=== PATIENT | female | born 1990 | race Caucasian/White ===

== ENCOUNTER 2017-08-19 11:21 | Emergency (ER) | payer MEDICAID ==
[~2017-08-19] VITALS: Ht 162.6 cm; Wt 77.1 kg
[~2017-08-19 11:21] MED LIST: BACTRIM DS 8001 TAB PO; KEFLEX 500MG.500 MG PO; LORTAB 500 MG-71 TAB PO; PRENATAL PLUS1 TA1 OR; TYLENOL 325MG325 MG OR
--- OUTSIDE RECORDS SUMMARY | 2017-08-19 11:28 | External Medical Summary Rpt | CCD ---
Author Author , MONTRELL Organization MONTRELL Address Unknown Phone [email or web address] Care Team Providers Care Home Service Advisor Name Role Phone MINNA BUITRAGO Unavailable Unavailable NAIDU ALL, NAIDU ALL Unavailable Unavailable CHIPPS PATRICIO & Unavailable Unavailable DUBILIER, CHIPPS PATRICIO & DUBILIER MONDRAGON KARENA, MONDRAGON Unavailable Unavailable KARENA MARY LIZZETTE, Unavailable Unavailable MARY LIZZETTE [place] Un[facility] DEPA RAY, DEPA RAY Unavailable Unavailable [facility] Unavailable Unavailable [place], [facility] [place] LOAN JEISON, Unavailable Unavailable LOAN JEISON CONRAD LA, CONRAD Unavailable Unavailable LA JAVIER LA, JAVIER Unavailable Unavailable [facility] Unavailable Unavailable [facility]ENTER, [facility] Unavailable Unavailable CENTER, [facility] Unavailable Unavailable INC, [facility] Unavailable Unavailable HOSPITAL P, [facility] PITER SANCHEZ Unavailable Unavailable ERNST GRAF BARRETT, GRAF BARRETT Unavailable Unavailable GRAF BARRETT, GRAF BARRETT Unavailable Unavailable [facility], Unavailable Unavailable [facility]available GROUP PS, [facility] Unavailable Unavailable INTERNAL MED, [facility] MARKO ANT, MARKO ANT Unavailable Unavailable DIANNE APOLINAR, DIANNE APOLINAR Unavailable Unavailable TESS GAR, Unavailable Unavailable TESS GAR O'SHELDONBRYAN ACEVEDO O'SHELDON Unavailable Unavailable [facility], Unavailable Unavailable [facility], ASAC ANA LEE LEEANN, Unavailable Unavailable ANA BRADSHAW [facility], Unavailable Unavailable [facility], Unavailable Unavailable [facility] Unavailable Unavailable [facility], [facility] Unavailable Unavailable LLC, [facility] Unavailable Unavailable [id number] [address] [id number], [facility] [id number] [address] [id number] MANNY TUBE MAKER, Unavailable Unavailable MANNYYUMIKO STUART, Unavailable Unavailable MANNY TUBE MAKER [facility] Unavailable Unavailable [facility], [facility] Purpose Continuity of Care Document - 12-17-2010 through 2016 Problems Code Diagnosis DOS Provider Status J069 ACUTE UPPER 02-20-2017 [facility] INTERNAL INFECTION MED UNSPECIFIED J3089 OTHER 02-20-2017 [facility] RHINITIS INTERNAL MED H5213 MYOPIA 08-15-2016 GRAF BARRETT BILATERAL [id number] MIGRAINE 05-27-2016 [facility] W/O [facility] INTRACT INTERNAL W/STAT MED MIGRAINOSUS B349 VIRAL 05-25-2016 [facility], UNSPECIFIED PLL R51 HEADACHE 05-25-2016 [facility], [facility] Z720 TOBACCO USE 05-25-2016 [facility] K580 IRRITABLE 10-16-2015 [facility] SYNDROME INTERNAL WITH MED DIARRHEA M545 LOW BACK 10-16-2015 [facility] PAIN [facility] INTERNAL MED Z0000 ENCOUNTER 10-16-2015 [facility] GEN ADULT [facility] MED EXAM INTERNAL W/O MED ABNORMAL FIND Z23 ENCOUNTER 10-16-2015 [facility] FOR [facility] IMMUNIZATIO INTERNAL N MED 56880 DIARRHEA 07-11-2015 [facility] 75480 ABDOMINAL 07-11-2015 [facility] UNSPECIFIED INC SITE 7245 UNSPECIFIED 06-20-2015 [facility] BACKACHE [facility] INTERNAL MED 61537 OTHER 06-12-2015 [place] [facility] 7379 UNSPECIFIED 06-12-2015 [place] CURVATURE [facility] SPINE [facility] 7391 NONALLOPATH 06-12-2015 [place] IC LESION [facility] CERVICAL [facility]ENT[facility] REGION NEC 7392 NONALLOPATH 06-12-2015 [place] IC LESION [facility] THORACIC [facility]ENT[facility] REGION NEC V252 STERILIZATI 01-10-2015 [place] [place] [facility] V7269 OTHER 01-10-2015 [facility] PATRICIO & EXAMINATION DUBILIER 650 NORMAL 01-08-2015 [place] [facility] V221 SUPERVISION 01-08-2015 [facility] V270 OUTCOME OF 01-08-2015 [facility] LIVEBORN 3550 LESION OF 12-13-2014 [facility] SCIATIC [facility] NERVE INTERNAL MED 3559 MONONEURITI 12-13-2014 [facility] S OF VALLEY UNSPECIFIED INTERNAL SITE MED V222 12-10-2014 [facility] P V239 UNSPECIFIED 11-27-2014 [facility] V2881 ENCOUNTER 08-23-2014 [facility] SURVEY 6875 CELLULITIS& 05-26-2014 [facility] ABSCESS OF PHYSICIANS HAND EXCEPT GROUP FINGERS&RIGO MB 7243 SCIATICA 05-22-2014 [facility] V571 OTHER 05-22-2014 [facility] THERAP[facility] V2511 ENC FOR 10-30-2011 [facility] INSERTION TUBE MAKER INTRAUTERIN E CONTRACEPT DEVICE V7241 10-30-2011 [facility] EXAMINATION TUBE MAKER OR TEST NEGATIVE RESULT 6258 OTH SPEC 09-24-2011 [facility] SYMPTOM TUBE MAKER ASSOC W/FEMALE GENITAL ORGANS V2509 OT GENERAL 09-24-2011 OLMST[facility] TUBE MAKER CNSL&ADVICE CONTRACEPT MANAGEMENT 57769 THREATENED 05-23-2011 [facility] ANTEPARTUM [facility] V7242 12-17-2010 [facility] POSITIVE RESULT Medications Na ND Rx Da Fi Fi Am Da Di Ph RX Ph St me C No te ll ll ou ys ag ar # ys at rm s nt no ma ic us Or Da si cy ia de te s n re d DU 51 09 10 30 30 00 EA Ac LO 99 -1 -[address] ti XE 10 8- 3- 00 SI ve TI 74 20 20 50 DE NE 71 17 17 20 0 39 PH HC AR L MA DR OM 30 OF CY MG NT HI CA AN P A IN C ME 61 09 10 30 30 00 EA Ac LO 44 -1 -[address] ti XI 20 8- 3- 00 SI ve CA 12 20 20 50 DE M 60 17 17 20 7. 1 40 PH 5 AR MG MA CY TA BL OF ET CY NT HI AN A IN C DU 51 08 09 30 30 00 EA Ac LO 99 -1 -[address] ti XE 10 4- 8- 00 00 SI ve TI 74 20 20 49 DE NE 71 17 17 25 0 32 PH HC AR L MA CY 30 OF CY MG NT HI CA AN P A IN C ME 61 08 09 30 30 00 EA Ac LO 44 -1 -[address] ti XI 20 4- 8- 00 00 SI ve CA 12 20 20 49 DE M 60 17 17 25 7. 1 33 PH 5 AR MG MA CY TA BL OF ET CY NT HI AN A IN C MA 51 06 07 59 1 00 EA Ac LA 67 -2 -[address] ti TH 25 6- 1- 00 00 SI ve IO 29 20 20 49 DE N 40 17 17 25 0. 4 34 PH 5% AR MA LO CY TI ON OF CY NT HI AN A IN C ME 61 06 07 30 30 00 EA Ac LO 44 -2 -[address] ti XI 20 6- 1- 00 00 SI ve CA 12 20 20 49 DE M 60 17 17 25 7. 1 33 PH 5 AR MG MA CY TA BL OF ET CY NT HI AN A IN C DU 51 06 07 30 30 00 EA Ac LO 99 -2 -[address] ti XE 10 6- 1- 00 00 SI ve TI 74 20 20 49 DE NE 71 17 17 25 0 32 PH HC AR L PIERCE MO 30 OF CY MG NT HI CA AN P A IN C CY 00 02 03 30 30 00 EA Ac CL 60 -1 -[address] ti OB 33 7- 7- 00 00 SI ve EN 07 20 20 47 DE ZA 82 17 17 59 IA 8 83 PH IN AR E MA 5 CY MG OF TA CY BL NT ET HI AN A IN C ME 61 02 03 30 30 00 EA Ac LO 44 -1 -[address] ti XI 20 7- 7- 00 00 SI ve CA 12 20 20 47 DE M 60 17 17 59 7. 1 81 PH 5 AR MG MA CY TA BL OF ET CY NT HI AN A IN C DU 13 02 03 30 30 00 EA Ac LO 66 -2 -[address] ti XE 80 0- 7- 00 00 SI ve TI 11 20 20 47 DE NE 03 17 17 59 0 82 PH HC AR L MA DR MO 30 OF CY MG NT HI CA AN P A IN C RA 53 08 09 5 60 30 EA 23 MARTINEZ Ac NI 74 -0 -[address] 59 YN ti TI 60 9- 9- 00 SI 08 ES ve DI 25 20 20 DE NE 31 11 11 NATTY 0 PH SE 15 AR PH 0 MA R MG CY TA OF BL ET CY NT HI AN A 59 08 08 0 14 7 EA 23 BE Ac 76 -3 -[address] 88 SS ti 21 0- 0- 00 SI 29 ON ve 05 20 20 DE [address] 5 PH EP AR HE MA N CY A OF CY NT HI AN A RA 53 08 08 5 60 30 EA 23 MARTINEZ Ac NI 74 -0 -[address] 59 YN ti TI 60 9- 9- 00 SI 08 ES ve DI 25 20 20 DE NE 31 11 11 NATTY 0 PH SE 15 AR PH 0 MA R MG CY TA OF BL ET CY NT HI AN A TO 24 06 06 2 5. 5 EA 23 MA Ac BR 20 -2 -[address] 08 TT ti AM 80 5- 5- 0 SI 04 HE ve YC 29 20 20 DE WS IN 00 11 11 5 PH JA 0. AR ME 3% MA S CY EY E OF DR OP CY S NT HI AN A AM 00 06 06 1 30 10 EA 22 MC Ac OX 78 -0 -[address] 86 KE ti IC 12 8- 8- 00 SI 62 OH ve IL 61 20 20 DE E LI 30 11 11 JR N 5 PH 50 AR WI 0 MA LL MG CY IA M CA OF F PS UL CY E NT HI AN A 00 06 06 0 20 7 EA 22 MARTINEZ Ac 59 -0 -[address] 77 YN ti 10 1- 1- 00 SI 46 ES ve 34 20 20 DE 90 11 11 NATTY 1 PH SE AR PH MA R CY OF CY NT HI AN A HY 16 05 05 0 90 30 EA [address] 71 -1 -[address] 56 YN ti OX 40 7- 7- 00 SI 01 ES ve YZ 08 20 20 DE IN 30 11 11 NATTY E 4 PH SE HC AR PH L MA R 50 CY MG OF TA CY BL NT ET HI AN A 00 05 05 0 30 10 EA 22 MARTINEZ Ac 59 -1 -[address] 56 YN ti 10 7- 7- 00 SI 22 ES ve 34 20 20 DE 90 11 11 NATTY 1 PH SE AR PH MA R CY OF CY NT HI AN A ME 00 05 05 0 70 5 EA 22 HU Ac TR 78 -0 -[address] 43 NT ti ON 17 6- 6- 00 SI 08 ER ve ID 07 20 20 DE AZ 78 11 11 NA OL 7 PH NC E AR Y VA MA C GI CY NA L OF 0. 75 CY % NT GL HI AN A TR 45 05 05 0 30 5 EA 22 HU Ac IA 80 -0 -[address] 37 NT ti MC 20 3- 3- 00 SI 00 ER ve IN 06 20 20 DE OL 43 11 11 NA ON 5 PH NC E AR Y 0. MA C 1% CY CR OF EA M CY NT HI AN A SM 49 05 05 0 47 7 EA 22 HU Ac 34 -0 -[address] 37 NT ti OH 80 3- 3- 00 SI 01 ER ve CO 53 20 20 DE NA 07 11 11 NA ZO 7 PH NC LE AR Y 7 MA C CY CR EA OF M CY NT HI AN A AZ 00 04 04 2. 1 RI 87 MARTINEZ Ac IT 78 -1 -1 00 TE 99 YN ti HR 11 9- 9- 0 17 ES ve OM 94 20 20 AI YC 13 11 11 D NATTY IN 1 PH SE AR PH 50 MA R 0 CY MG 03 TA 93 BL 8 ET # 03 [id number] Results Labs Lab Lab Date Result Refere Interp Status Commen Order Detail nces retati t Range on CHLAMYDIA AND GONORRHEA TESTING (12-21-2012 13:30) Chlamyd NEGATIV complet ia 013 E ed trachom 13:30 atis rRNA [Presen ce] in Unspeci fied specime n by Probe & target amplifi cation method Neisser NEGATIV complet ia 013 E ed gonorrh 13:30 oeae rRNA [Presen ce] in Unspeci fied specime n by Probe & target amplifi cation method CHLAMYDIA AND GONORRHEA TESTING (12-21-2012 13:30) COLLECT NA complet OR 013 ed 13:30 ETHNICI WHITE, complet TY 013 NON-HIS ed 13:30 PANIC KIT 731-13 complet EXPIRAT 013 ed ION 13:30 DATE SYMPTOM NO complet S 013 ed 13:30 REASON REVISIT complet FOR 013 /ANNUAL ed REQUEST 13:30 FAMILY PLANNIN G VISIT SPECIME FEMALE complet N 013 ENDOCER ed SOURCE 13:30 VICAL PREGNAN NO complet T 013 ed 13:30 CHART NA complet NUMBER 013 ed 13:30 Chlamyd Pending complet ia 013 ed trachom 13:30 atis rRNA [Presen ce] in Unspeci fied specime n by Probe & target amplifi cation method Neisser Pending complet ia 013 ed gonorrh 13:30 oeae rRNA [Presen ce] in Unspeci fied specime n by Probe & target amplifi cation method Procedures Procedure DOS Code Location Performer Comment OPHTH 14494 [facility]RAF [facility] XM&EVAL COMPRE NEW PT 1/> [place] [address] [facility] INFUSION 6 [facility] THERAPY/P INC INC ROPHYLAXI S /DX 1ST TO 1 HR THERAPEUT 28747 [facility] IC 6 [facility] INJECTION INC INC IV PUSH EACH NEW DRUG URNLS DIP 03139 [facility] 6 [facility] STICK/TAB INC INC LET REAGENT AUTO MICROSCOP Y BLOOD 60160 [facility] COUNT 6 [facility] COMPLETE INC INC AUTO&[place] [address] [place] MARY MAXILLOFA 6 MEDICAL LIZZETTE CIAL W/O IMAGING CONTRAST ASS MATERIAL COMPREHEN 49143 [facility] SIVE 6 [facility] [place] [address] [place] MARY HEAD/BRAI 6 MEDICAL LIZZETTE N W/O IMAGING CONTRAST ASS MATERIAL URINE 85690 [facility]LL 6 [facility] TEST INC INC VISUAL COLOR CMPRSN METHS SKIN TEST 55831 [facility] LOAN 5 [place] JEISON TUBERCULO INTERNAL SIS MED INTRADERM AL IMMUNOASS 56024 [facility] AY 5 [facility] ANALYTE INC INC QUAL/SEMI QUAL MULTIPLE STEP FLUORESCE 61585 [facility] NT 5 [facility] NONNFCT INC INC AGT ANTB SCREEN EA ANTIBODY COMPREHEN 94420 [facility] SIVE 5 [facility] METABOLIC INC INC PANEL COLLECTIO 25476 [facility] N VENOUS 5 [facility] BLOOD INC INC VENIPUNCT URE BLOOD 59104 MANN MANN COUNT 5 [facility] COMPLETE INC INC AUTO&AUTO DIFRNTL WBC ALLERGEN 78274 MANNISABEL DARNELL SPECIFIC 5 [facility] IGE INC INC SHORTY/SEMI SHORTY EA ALLERGEN RADEX 77001 [place] NAIDU ALL SPINE 5 MEDICAL THORACOLM IMAGING BR ASS STANDING SCOLIOSIS RADEX 25774 [facility]LL SPINE 5 [facility] SCOLIOS INC INC STUDY W/SUPINE & ERECT STUDY SELF-CARE 77961 CANDE CASTELLON /HOME 5 MGMT CHIROP[facility]AC CHIROPRAC TRAINING TIC CENTE TIC CENTE EACH 15 MINUTES CHIROPRAC 75596 CANDE PULIDO TIC 5 GAR MANIPULAT CHIROPRAC [place] TIC CENTE SPINAL 3-4 REGIONS CHIROPRAC 61256 CANDE PULIDO TIC 5 GAR MANIPULAT CHIROPRAC [place] TX TIC CENTE SPINAL 3-4 REGIONS RADEX 35133 [facility] SPINE 5 GAR CERVICAL CHIROPRAC 2 OR 3 TIC CENTE VIEWS RADEX 07307 [facility] SPINE 5 GAR LUMBOSACR CHIROPRAC AL 2/3 [place] L[place] [address] [facility] PICKLESIM SURG 5 PATRICIO & ER [facility] PATHOLOGY DUBILIER GROSS&LA ROSCOPIC EXAM ANES IPER 25747 [place] DEPA RAY LWR ABD 5 ANESTHESI W/LAPS A GROUP TUBAL PS LIGATION/ TRANSECT LIG/TRNSX 32749 [facility] Gagnon FLP 5 MEDICAL ERNST TUBE SERV ABDL/VAG FOUNDATIO POSTPARTU N M SPX NEURAXIAL 23846 [place] JAVIER LABOR 5 ANESTHESI LA ANALG/ANE A GROUP S PLND PS VAGINAL DELIVERY VAGINAL 22209 [facility] DELIVERY 5 MEDICAL ERNST ONLY SERV W/POSTPAR FOUNDATIO GUZMAN CARE N BLOOD 94440 [facility] COUNT 5 DIAGNOSTI DIAGNOSTI COMPLETE CS CS AUTOMATED COLLECTIO 37470 [facility] N VENOUS 5 DIAGNOSTI DIAGNOSTI BLOOD CS CS VENIPUNCT URE SYPHILIS 05907 [facility] TEST 5 DIAGNOSTI DIAGNOSTI NON-TREPO CS CS NEMAL ANTIBODY QUAL ANTIBODY 42725 [facility] SCREEN 5 DIAGNOSTI DIAGNOSTI RBC EACH CS CS SERUM TECHNIQUE CUL 51749 [facility] PRSMPTV 5 DIAGNOSTI DIAGNOSTI PTHGNC CS CS ORGANISM SCRN W/COLONY ESTIMJ GLUCOSE 05034 [facility] POST 4 DIAGNOSTI DIAGNOSTI GLUCOSE CS CS DOSE INCORPORA T US PREG 10540 JOY O'SHELDON UTERUS 4 MEDICAL KRISTINA AFTER SERV TRIMEST FOUNDATIO N GESTATION PHYSICAL 27712 MANN DAR[facility]LL THERAPY 4 [facility] EVALUATIO INC INC N IADNA 50266 [facility] CHLAMYDIA 4 DIAGNOSTI DIAGNOSTI CS CS LLC TRACHOMAT IS AMPLIFIED PROBE TQ IADNA 44603 [facility] NEISSERIA 4 DIAGNOSTI DIAGNOSTI CS CS LLC GONORRHOE AE AMPLIFIED PROBE TQ NEURAXIAL 27587 [place] MARK[facility] ANT LABOR 1 ANESTHESI ANALG/ANE A GROUP S PLND PSC VAGINAL DELIVERY 11793 [facility] NONSTRESS 1 [facility] 17098 MANN MANN [facility] CENTER VISUAL COLOR CMPRSN METHS Encounters Encounter Start End Date Code Location Performer Type Date OFFICE 57682 [facility] BESSON OUTPATIEN 7 7 [facility] T VISIT INTERNAL 25 MED MINUTES OFFICE 67049 [facility] OUTPATIEN 6 6 [facility] JEISON T VISIT INTERNAL 15 MED MINUTES HOSPITAL MANN - 6 6 [facility] OUTPATIEN INC T EMERGENCY 63820 GONZALO MARTINES 6 6 PHYSICIAN LA DEPARTMEN S, PLLC T VISIT HIGH/URGE NT SEVERITY OFFICE 19557 [facility] OUTPATIEN 5 5 [facility] T VISIT INTERNAL 25 MED MINUTES HOSPITAL MANN - 5 5 [facility] OUTPATI[facility] INC T OFFICE 17900 [facility] OUTPATIEN 5 5 [facility] JE[facility] T VISIT INTERNAL 15 MED MINUTES HOSPITAL MANN - 5 5 [facility] OUTPATI[facility] INC T OFFICE 25862 [facility] PULIDO OUTPATIEN 5 5 GAR T NEW 20 CHIROPRAC MINUTES TIC CENTE OFFICE 25262 [facility] OUTPATIEN 5 5 [facility] T VISIT INTERNAL 15 MED MINUTES HOSPITAL MANN - 5 5 [facility] OUTPATIEN INC T EMERGENCY 13077 MANN 5 5 [facility] T VISIT LOW/MODER SEVERITY EMERGENCY 19871 MANN JIANG 5 5 [facility] T VISIT P MODERATE SEVERITY OFFICE 50253 [facility] CONRAD RODGERS 4 4 [facility] T NEW [facility] S [facility] MANN - 4 4 [facility] OUTPATIEN INC T OFFICE 29270 [facility] BRYANT OUTPATIEN 1 1 [facility] T VISIT 15 MINUTES OFFICE 26546 [facility] DARNELL OUTALEXANDER 1 1 [facility] T VISIT CENTER CENTER 15 MINUTES
--- OUTSIDE RECORDS SUMMARY | 2017-08-19 11:28 | External Medical Summary Rpt | CCD ---
Author Author , MONTRELL Organization MONTRELL Address Unknown Phone [email or web address] Care Team Providers Care Take Out Waiter/Waitress Name Role Phone MINNA BUITRAGO Unavailable Unavailable NAIDU ALL, NAIDU ALL Unavailable Unavailable [facility]IPPS PATRICIO & Unavailable Unavailable DUBILIER, CHIPPS PATRICIO & DUBILIER MONDRAGON KARENA, MONDRAGON Unavailable Unavailable KARENA MARY LIZZETTE, Unavailable Unavailable MARY LIZZETTE [place] Unavailable [facility] [facility] DEPA RAY, DEPA RAY Unavailable Unavailable [facility] Unavailable [place]available [place], [facility] [place] LOAN JEISON, Unavailable Unavailable LOAN JEISON CONRAD LA, CONRAD Unavailable Unavailable LA JAVIER LA, JAVIER Unavailable Unavailable [facility] Unavailable Unavailable CENTER, [facility] Unavailable Unavailable CENTER, [facility] Unavailable Unavailable INC, [facility] Unavailable Unavailable [facility]OSPITAL P, [facility] PITER SANCHEZ Unavailable Unavailable ERNST GRAF BARRETT, GRAF BARRETT Unavailable Unavailable GRAF BARRETT, GRAF BARRETT Unavailable Unavailable [facility], Unavailable Unavailable [facility] [place] [facility] Un[facility] Unavailable [facility] PS, [place]available Unavailable INTERNAL MED, [facility] MARKO ANT, MARKO ANT Unavailable [...] [facility] Unavailable Unavailable [id number] [address] [id number], [facility] [id number] # [phone] MANNY CANTEEN ATTENDANT, Unavailable Unavailable MANNYYUMIKO STUART, Unavailable Unavailable MANNY CANTEEN ATTENDANT [facility] Unavailable Unavailable [facility] [place], [facility] Purpose Continuity of Care Document - 12-17-2010 through 2016 Problems Code Diagnosis DOS Provider Status J069 ACUTE UPPER 02-20-2017 [facility] INTERNAL INFECTION MED UNSPECIFIED [id number] OTHER 02-20-2017 [facility] ALLERGIC [facility] RHINITIS INTERNAL MED H5213 MYOPIA 08-15-2016 GRAF BARRETT BILATERAL [id number] MIGRAINE 05-27-2016 [facility] W/O [facility] INTRACT INTERNAL W/STAT MED MIGRAINOSUS B349 VIRAL 05-25-2016 [facility], UNSPECIFIED PLL R51 HEADACHE 05-25-2016 [facility], [facility] Z720 TOBACCO USE 05-25-2016 [facility] K580 IRRITABLE 10-16-2015 [facility] [place] [facility] SYNDROME INTERNAL WITH MED DIARRHEA M545 LOW BACK 10-16-2015 [facility] PAIN [facility] INTERNAL MED Z0000 ENCOUNTER 10-16-2015 [facility] GEN ADULT [facility] MED EXAM INTERNAL W/O MED ABNORMAL FIND Z23 ENCOUNTER 10-16-2015 [facility] FOR [facility] IMMUNIZATIO INTERNAL N MED 39607 DIARRHEA 07-11-2015 [facility] 24361 ABDOMINAL 07-11-2015 [facility] UNSPECIFIED INC SITE 7245 UNSPECIFIED 06-20-2015 [facility] BACKACHE [facility] INTERNAL MED 99019 OTHER 06-12-2015 [place] LORDOSIS [facility] 7379 UNSPECIFIED 06-12-2015 [place] CURVATURE [facility] SPINE C CENT[facility] 7391 NONALLOPATH 06-12-2015 [place] IC LESION [facility] CERVICAL C CENTE REGION NEC 7392 NONALLOPATH 06-12-2015 [place] IC LESION [facility] THORACIC C CENTE REGION NEC V252 STERILIZATI 01-10-2015 [place] [facility] V7269 OTHER 01-10-2015 [facility] PATRICIO & EXAMINATION DUBILIER 650 NORMAL 01-08-2015 [place] [facility] PS V221 SUPERVISION 01-08-2015 [facility] NORMAL [facility] V270 OUTCOME OF 01-08-2015 [facility] SINGLE [facility] LIVEBORN 3550 LESION OF 12-13-2014 [facility] SCIATIC [facility] NERVE INTERNAL MED 3559 MONONEURITI 12-13-2014 [facility] S OF VAL[facility] UNSPECIFIED INTERNAL SITE MED V222 12-10-2014 [facility] P V239 UNSPECIFIED 11-27-2014 [facility] V2881 ENCOUNTER 08-23-2014 [facility]AT[facility] SURVEY 6872 CELLULITIS& 05-26-2014 [facility] ABSCESS OF PHYSICIANS HAND EXCEPT GROUP FINGERS&RIGO MB 7243 SCIATICA 05-22-2014 [facility] V571 OTHER 05-22-2014 [facility] V2511 ENC FOR 10-30-2011 MAN[facility] INSERTION CANTEEN ATTENDANT INTRAUTERIN E CONTRACEPT DEVICE V7241 10-30-2011 [facility] EXAMINATION CANTEEN ATTENDANT OR TEST NEGATIVE RESULT 6258 OTH SPEC 09-24-2011 [place] SYMPTOM CANTEEN ATTENDANT ASSOC W/FEMALE GENITAL ORGANS V2509 OT GENERAL 09-24-2011 [place] CANTEEN ATTENDANT CNSL&ADVICE CONTRACEPT MANAGEMENT 61624 THREATENED 05-23-2011 [facility] CLINIC OF ANTEPARTUM [facility] V7242 12-17-2010 [facility] EXAMINATION HEALTH OR TEST CENTER POSITIVE RESULT [...] 39 PH HC AR L MA DR MO [...] 47 DE ZA 82 17 17 59 KS 8 83 PH IN AR E MA [...] IC 12 8- 8- 00 SI 62 NV ve IL 61 20 20 DE E [...] -0 -[address] 37 NT ti NV 80 3- 3- 00 SI 01 ER [...] Procedure DOS Code Location Performer Comment OPHTH 78924 [facility] 6 XM&EVAL COMPRE NEW PT 1/> [place] [address] MANN DARNELL INFUSION 6 [facility] THERAPY/P INC INC ROPHYLAXI S /DX 1ST TO 1 HR THERAPEUT 29488 [facility] DARNELL IC 6 [facility] INJECTION INC INC IV PUSH EACH NEW DRUG URNLS DIP 96642 [facility]LL 6 [facility] STICK/TAB INC INC LET REAGENT AUTO MICROSCOP Y BLOOD 49597 [facility] DARNELL COUNT 6 [facility] COMPLETE INC INC AUTO&[place] [address] [place] M[facility] MAXILLOFA 6 MEDICAL LIZZETTE CIAL W/O IMAGING CONTRAST ASS MATERIAL COMPREHEN 67129 [facility]ARNELL SIVE 6 [facility] [place] [address] [place] MARY HEAD/BRAI 6 MEDICAL LIZZETTE N W/O IMAGING CONTRAST ASS MATERIAL URINE 29072 [facility] DARNELL 6 [facility] TEST INC INC VISUAL COLOR CMPRSN METHS SKIN TEST 05760 [facility] LOAN 5 [place] JEISON TUBERCULO INTERNAL SIS MED INTRADERM AL IMMUNOASS 02940 [facility]LL AY 5 [facility] ANALYTE INC INC QUAL/SEMI QUAL MULTIPLE STEP FLUORESCE 74598 M[facility] DARNELL NT 5 [facility] NONNFCT INC INC AGT ANTB SCREEN EA ANTIBODY COMPREHEN 12461 MANN DARNELL SIVE 5 [facility] METABOLIC INC INC PANEL COLLECTIO 71365 MANN DARNELL N VENOUS 5 [facility] BLOOD INC INC VENIPUNCT URE BLOOD 86128 MANN MANN COUNT 5 [facility] COMPLETE INC INC AUTO&AUTO DIFRNTL WBC ALLERGEN 61966 MANNISABEL DARNELL SPECIFIC 5 [facility] IGE INC INC SHORTY/SEMI SHORTY EA ALLERGEN RADEX 96268 [place] NAIDU ALL SPINE 5 MEDICAL THORACOLM IMAGING BR ASS STANDING SCOLIOSIS RADEX 09717 MANN DARNELL SPINE 5 [facility] SCOLIOS INC INC STUDY W/SUPINE & ERECT STUDY SELF-CARE 81691 CANDE CASTELLON /HOME 5 MGMT CHIROPRAC CHIROPRAC TRAINING TIC CENTE TIC CENTE EACH 15 MINUTES CHIROPRAC 93771 [facility] PULIDO TIC 5 GAR MANIPULAT CHIROPRAC PENNY TX TIC CENTE SPINAL 3-4 REGIONS CHIROPRAC 11901 CANDE PULIDO TIC 5 GAR MANIPULAT CHIROPRAC PENNY TX TIC CENTE SPINAL 3-4 REGIONS RADEX 14801 [facility] P[facility]O SPINE 5 GAR CERVICAL CHIROPRAC 2 OR 3 TIC CENTE VIEWS RADEX 59473 [facility] SPINE 5 GAR LUMBOSACR CHIROPRAC AL 2/3 [place] L[place] [address] [facility] PICKLESIM SURG 5 PATRICIO & ER [facility] PATHOLOGY DUBILIER GROSS&LA ROSCOPIC EXAM ANES IPER 45046 [place] DEPA RAY LWR ABD 5 ANESTHESI W/LAPS A GROUP TUBAL PS LIGATION/ TRANSECT LIG/TRNSX 19892 [place] P[facility] Gagnon FLP 5 MEDICAL ERNST TUBE SERV ABDL/VAG FOUNDATIO POSTPARTU N M SPX NEURAXIAL 68179 [place] JAVIER LABOR 5 ANESTHESI LA ANALG/ANE A GROUP S PLND PS VAGINAL DELIVERY VAGINAL 07896 [facility] DELIVERY 5 MEDICAL ERNST ONLY SERV W/POSTPAR FOUNDATIO GUZMAN CARE N BLOOD 03696 [facility] COUNT 5 DIAGNOSTI DIAGNOSTI COMPLETE CS CS AUTOMATED COLLECTIO 90352 [facility] N VENOUS 5 DIAGNOSTI DIAGNOSTI BLOOD CS CS VENIPUNCT URE SYPHILIS 21061 [facility] TEST 5 DIAGNOSTI DIAGNOSTI NON-TREPO CS CS NEMAL ANTIBODY QUAL ANTIBODY 08060 [facility] SCREEN 5 DIAGNOSTI DIAGNOSTI RBC EACH CS CS SERUM TECHNIQUE CUL 80860 [facility] PRSMPTV 5 DIAGNOSTI DIAGNOSTI PTHGNC CS CS ORGANISM SCRN W/COLONY ESTIMJ GLUCOSE 79731 [facility] POST 4 DIAGNOSTI DIAGNOSTI GLUCOSE CS CS DOSE INCORPORA T US PREG 75189 JOY O'SHELDON UTERUS 4 MEDICAL KRISTINA AFTER SERV TRIMEST FOUNDATIO N GESTATION PHYSICAL 23029 MANN DARNELL THERAPY 4 [facility] EVALUATIO INC INC N IADNA 64663 [facility] CHLAMYDIA 4 DIAGNOSTI DIAGNOSTI CS CS LLC TRACHOMAT IS AMPLIFIED PROBE TQ IADNA 19352 [facility] NEISSERIA 4 DIAGNOSTI DIAGNOSTI CS CS LLC GONORRHOE AE AMPLIFIED PROBE TQ NEURAXIAL 44733 [place] MARKO ANT LABOR 1 ANESTHESI ANALG/ANE A GROUP S PLND PSC VAGINAL DELIVERY 33733 [facility] MONDRAG[facility] NONSTRESS 1 [facility] 17208 MANN MANN [facility] CENTER VISUAL COLOR CMPRSN METHS Encounters Encounter Start End Date Code Location Performer Type Date OFFICE 81143 [facility]PAT[facility] 7 7 [facility] T VISIT INTERNAL 25 MED MINUTES OFFICE 08721 [facility] OUTPATIEN 6 6 [facility] JEISON T VISIT INTERNAL 15 MED MINUTES HOSPITAL MANN - 6 6 [facility] OUTPATI[facility] INC T EMERGENCY 95516 [facility] MARTINES 6 6 PHYSICIAN LA DEPARTMEN S, PLLC T VISIT HIGH/URGE NT SEVERITY OFFICE 09901 [facility] LOAN OUTPATIEN 5 5 [facility] JEISON T VISIT INTERNAL 25 MED MINUTES HOSPITAL MANN - 5 5 [facility] OUTPATIEN INC T OFFICE 68809 [facility] OUTPATIEN 5 5 [facility] JEISON T VISIT INTERNAL 15 MED MINUTES HOSPITAL MANN - 5 5 [facility] OUTPATIEN INC T OFFICE 21545 [facility] P[facility]O OUTPATIEN 5 5 GAR T NEW 20 CHIROP[facility]AC MINUTES TIC CENTE OFFICE 70051 [facility] LO[facility] OUTPATIEN 5 5 [facility] JEISON T VISIT INTERNAL 15 MED MINUTES HOSPITAL MANN - 5 5 [facility] OUTPATIEN INC T EMERGENCY 98962 MANN 5 5 [facility] T VISIT LOW/MODER SEVERITY EMERGENCY 22878 MANN JIANG 5 5 [facility] T VISIT P MODERATE SEVERITY OFFICE 74596 [facility] CONRAD RODGERS 4 4 [facility] T NEW 20 S [facility] MANN - 4 4 [facility] OUTPATIEN INC T OFFICE 34966 MANNY BRYANT OUTPATIEN 1 1 [facility] T VISIT 15 MINUTES OFFICE 36888 MANN DARNELL OUTALEXANDER 1 1 [facility] T VISIT CENTER CENTER 15 MINUTES
--- OUTSIDE RECORDS SUMMARY | 2017-08-19 11:31 | External Medical Summary Rpt | CCD ---
Demographics Preferred Language Kazakh Marital Status Unknown [employer] Affiliation Unknown Race Unknown Ethnic Group Unknown Author Author , MONTRELL STOCK Address Unknown Phone Immunization Unable to retrieve immunization data due to connection failure with Immunization Registry. Please try again later.
--- OUTSIDE RECORDS SUMMARY | 2017-08-19 11:31 | External Medical Summary Rpt ---
Author Author MONTRELL Brown, MONTRELL [employer] Organization [employer] Address Unknown Phone Unavailable Results CHLAMYDIA AND GONORRHEA TESTING Observa Value Referen Units Interpr Notes Date tion ce etation Range COLLECT NA No No No No Dec 21 OR informa informa informa informa 2013 tion in tion in tion in tion in 1:30 PM source source source source data data data data ETHNICI WHITE, No No No No Dec 21 TY NON-HIS informa informa informa informa 2013 PANIC tion in tion in tion in tion in 1:30 PM source source source source data data data data KIT 7-31-13 No No No No Dec 21 EXPIRAT informa informa informa informa 2013 ION tion in tion in tion in tion in 1:30 PM DATE source source source source data data data data SYMPTOM NO No No No No Dec 21 S informa informa informa informa 2013 tion in tion in tion in tion in 1:30 PM source source source source data data data data REASON REVISIT No No No No Dec 21 FOR /ANNUAL informa informa informa informa 2013 REQUEST FAMILY tion in tion in tion in tion in 1:30 PM source source source source PLANNIN data data data data G VISIT SPECIME FEMALE No No No No Dec 21 N ENDOCER informa informa informa informa 2013 SOURCE VICAL tion in tion in tion in tion in 1:30 PM source source source source data data data data PREGNAN NO No No No No Dec 21 T informa informa informa informa 2013 tion in tion in tion in tion in 1:30 PM source source source source data data data data CHART NA No No No No Dec 21 NUMBER informa informa informa informa 2013 tion in tion in tion in tion in 1:30 PM source source source source data data data data Chlamyd NEGATIV No No No NEGATIV Dec 21 ia E informa informa informa E 2013 trachom tion in tion in tion in RESULT= 1:30 PM atis source source source WITHIN rRNA data data data NORMAL [Presen ce] in LIMITSP Unspeci OSITIVE fied specime RESULT= n by Probe & ABNORMA target LEQUIVO SOLE amplifi RESULT= cation method INDETER MINATEU NSATISF ACTORY RESULT= INVALID Neisser NEGATIV No No No NEGATIV Dec 21 ia E informa informa informa E 2013 gonorrh tion in tion in tion in RESULT= 1:30 PM oeae source source source WITHIN rRNA data data data NORMAL [Presen ce] in LIMITSP Unspeci OSITIVE fied specime RESULT= n by Probe & ABNORMA target LEQUIVO SOLE amplifi RESULT= cation method INDETER MINATEU NSATISF ACTORY RESULT= INVALID THE APTIMA COMBO 2 ASSAY IS NOT INTENDE D FOR THE EVALUAT ION OF SUSPECT EDSEXUA L ABUSE OR FOR OTHER MEDICO- LEGAL INDICAT IONS. FOR THOSE PATIENT S FORWHOM A FALSE POSITIV E RESULT MAY HAVE ADVERSE PSYCHO- SOCIAL IMPACT, [facility] RETEST[facility] NG.\.br \This report contain s patient informa tion that must be protect ed in accorda nce with the Health Insuran ce [place] lity and Account ability Act. CHLAMYDIA AND GONORRHEA TESTING Observa Value Referen Units Interpr Notes Date tion ce etation Range COLLECT NA No No No No Dec 21 OR informa informa informa informa 2013 tion in tion in tion in tion in 1:30 PM source source source source data data data data ETHNICI WHITE, No No No No Dec 21 TY NON-HIS informa informa informa informa 2013 PANIC tion in tion in tion in tion in 1:30 PM source source source source data data data data KIT 7-31-13 No No No No Dec 21 EXPIRAT informa informa informa informa 2013 ION tion in tion in tion in tion in 1:30 PM DATE source source source source data data data data SYMPTOM NO No No No No Dec 21 S informa informa informa informa 2013 tion in tion in tion in tion in 1:30 PM source source source source data data data data REASON REVISIT No No No No Dec 21 FOR /ANNUAL informa informa informa informa 2013 REQUEST FAMILY tion in tion in tion in tion in 1:30 PM source source source source PLANNIN data data data data G VISIT SPECIME FEMALE No No No No Dec 21 N ENDOCER informa informa informa informa 2013 SOURCE VICAL tion in tion in tion in tion in 1:30 PM source source source source data data data data PREGNAN NO No No No No Dec 21 T informa informa informa informa 2013 tion in tion in tion in tion in 1:30 PM source source source source data data data data CHART NA No No No No Dec 21 NUMBER informa informa informa informa 2013 tion in tion in tion in tion in 1:30 PM source source source source data data data data Chlamyd Pending No No No No Dec 21 ia informa informa informa informa 2013 trachom tion in tion in tion in tion in 1:30 PM atis source source source source rRNA data data data data [Presen ce] in Unspeci fied specime n by Probe & target amplifi cation method Neisser Pending No No No \.br\Dec 21 ia informa informa informa is 2013 gonorrh tion in tion in tion in report 1:30 PM oeae source source source contain rRNA data data data s [Presen patient ce] in Unspeci informa fied tion specime that n by must be Probe & target protect ed in amplifi accorda cation nce method with the Health Insuran ce [place] lity and Account ability Act.
--- OUTSIDE RECORDS SUMMARY | 2017-08-19 11:31 | External Medical Summary Rpt | CCD ---
Author Author , MONTRELL HOLMDOLORES Address Unknown Phone [email or web address] Care Team Providers Care Creative Director Name Role Phone MINNA BUITRAGO Unavailable Unavailable NAIDU ALL, NAIDU ALL Unavailable Unavailable [facility] PATRIC[facility] & Unavailable Unavailable DUBILIER, [facility] PATRICIO & DUBILIER MONDRAGON KARENA, MONDRAGON Unavailable Unavailable [facility] [place] Unavailable Unavailable [facility] DEPA RAY, DEPA RAY Unavailable Unavailable [facility] Unavailable Unavailable [place], [facility] [place] LOAN SAR, Unavailable Unavailable LOAN JEISON CONRAD LA, CONRAD Unavailable Unavailable LA JAVIER LA, JAVIER Unavailable Unavailable [facility] Unavailable Unavailable [place], [facility] Unavailable Unavailable CENTER, [facility] Unavailable Unavailable INC, [facility] Unavailable Unavailable HOSPITAL P, [facility] DUMAS ERNST, DUMAS Unavailable Unavailable ERNST GRAF BARRETT, GRAF BARRETT Unavailable Unavailable GRAF BARRETT, GRAF BARRETT Unavailable Unavailable [facility], Unavailable Unavailable [facility] Un[facility] Unavailable GROUP PS, [facility] Un[facility], [facility] Unavailable Unavailable INTERNAL MED, [facility] MARKO ANT, MARKO ANT Unavailable Unavailable DIANNE APOLINAR, DIANNE APOLINAR Unavailable Unavailable TESS GAR, Unavailable Unavailable TESS GAR Bob'SHELDONBob TEJEDA'SHELDON Unavailable Unavailable [facility], Unavailable Unavailable [facility] PICKGEORGE LEE LEEANN, Unavailable Unavailable ANA BRADSHAW [facility], Unavailable Unavailable [facility], Unavailable Unavailable [facility] Unavailable Unavailable [facility]AT, [facility] Unavailable Unavailable LLC, [facility] Unavailable Unavailable [id number] # [id number], [facility] [address] # [id number] MANNY STUART, Unavailable Unavailable MANNY STUART, Unavailable Unavailable MANNY STUART [facility] Unavailable Unavailable OF [place], [facility] Purpose Continuity of Care Document - 12-17-2010 through 2016 Problems Code Diagnosis DOS Provider Status J069 ACUTE UPPER 02-20-2017 [facility] INTERNAL INFECTION MED UNSPECIFIED J3089 OTHER 02-20-2017 [facility] ALLERGIC [facility] RHINITIS INTERNAL MED H5213 MYOPIA 08-15-2016 [place] HYDE BILATERAL [id number] MIGRAINE 05-27-2016 [facility] W/[facility] INTRACT INTERNAL W/STAT MED MIGRAINOSUS B349 VIRAL 05-25-2016 [facility]PEC[facility]C R51 HEADACHE 05-25-2016 [facility] Z720 TOBACCO USE 05-25-2016 [facility] K580 IRRITABLE 10-16-2015 [facility] BOWEL [place] SYNDROME INTERNAL WITH MED DIARRHEA M545 LOW BACK 10-16-2015 [facility] PAIN [facility] INTERNAL MED Z0000 ENCOUNTER 10-16-2015 [facility] GEN ADULT [place] MED EXAM INTERNAL W/O MED ABNORMAL FIND Z23 ENCOUNTER 10-16-2015 [facility] FOR [facility] IMMUNIZATIO INTERNAL N MED 10120 DIARRHEA 07-11-2015 [facility] 35222 ABDOMINAL 07-11-2015 [facility]IN[facility] UNSPECIFIED INC SITE 7245 UNSPECIFIED 06-20-2015 [facility] BACKACHE [place] INTERNAL MED 82415 OTHER 06-12-2015 [place] LORDOSIS [facility] 7379 UNSPECIFIED 06-12-2015 [place] CURVATURE [facility] SPINE C CENTE 7391 NONALLOPATH 06-12-2015 [place] IC LESION [facility]OPRA[facility]I OF CERVICAL C CENTE REGION NEC 7392 NONALLOPATH 06-12-2015 [place] IC LESION [facility]IROPRA[facility]I OF THORACIC C CENTE REGION NEC V252 STERILIZATI 01-10-2015 [place] [facility] PS V7269 OTHER 01-10-2015 [facility] PATRICIO & EXAMINATION DUBILIER 650 NORMAL 01-08-2015 [place] DELIVERY [facility]ESTH[facility]IA [facility] PS V221 SUPERVISION 01-08-2015 [place] [facility] OTHER SERV NORMAL [facility]OUNDATION V270 OUTCOME OF 01-08-2015 [place] [facility] LIVEBORN 3550 LESION OF 12-13-2014 [facility] SCIATIC [facility] NERVE INTERNAL MED 3559 MONONEURITI 12-13-2014 [facility] S OF VALLEY UNSPECIFIED INTERNAL SITE MED V222 12-10-2014 [facility] P V239 UNSPECIFIED 11-27-2014 [facility] V2881 ENCOUNTER 08-23-2014 [place] [facility]ATOMIC [facility] SURVEY 6847 CELLULITIS& 05-26-2014 [facility] OF PHYSICIANS HAND EXCEPT GROUP FINGERS&RIGO MB 7243 SCIATICA 05-22-2014 [facility] V571 OTHER 05-22-2014 [facility] INC V2511 ENC FOR 10-30-2011 [place] INSERTION ALLEY TENDER INTRAUTERIN E CONTRACEPT DEVICE V7241 10-30-2011 [place] EXAMINATION ALLEY TENDER OR TEST NEGATIVE RESULT 6258 OT SPEC 09-24-2011 [place] SYMPTOM ALLEY TENDER ASSOC W/FEMALE GENITAL ORGANS V2509 OT GENERAL 09-24-2011 [place] ALLEY TENDER CNSL&ADVICE CONTRACEPT MANAGEMENT 19499 THREATENED 05-23-2011 [facility] OF ANTEPARTUM [place] V7242 12-17-2010 [facility] EXAMINATION HEALTH OR TEST CENTER POSITIVE RESULT [...] ST ti XE 10 8- 3- 00 00 SI ve TI 74 20 20 50 DE NE 71 17 17 20 0 39 PH HC AR L PIER[place] MO 30 OF CY MG NT HI CA AN P A IN C ME 61 09 10 30 30 00 EA Ac LO 44 -1 -[address] ti XI 20 8- 3- 00 00 SI ve CA 12 20 [...] 47 DE ZA 82 17 17 59 MA 8 83 PH IN AR E MA [...] 82 PH HC AR L MA DR CY 30 OF CY MG NT HI [...] IC 12 8- 8- 00 SI 62 [place] ve IL 61 20 20 DE E [...] -0 -[address] 37 NT ti [place] 80 3- 3- 00 SI 01 ER [...] 93 BL 8 ET # 03 93 Procedures Procedure DOS Code Location Performer Comment [facility] [address] [facility] 6 XM&EVAL COMPRE NEW PT 1/> [place] [address] MANN DARNELL INFUSION 6 [facility] THERAPY/P INC INC ROPHYLAXI S /DX 1ST TO 1 HR THERAPEUT 38841 MANN D[facility]NELL IC 6 [facility] INJECTION INC INC IV PUSH EACH NEW DRUG URINE 61273 M[facility] D[facility]NELL 6 [facility] TEST INC INC VISUAL COLOR CMPRSN METHS COMPREHEN 50123 M[facility] D[facility]LL SIVE 6 [facility] [place] [address] MANN DARNELL HEAD/BRAI 6 [facility] N W/O INC INC CONTRAST MATERIAL URNLS DIP 22096 [facility] D[facility]LL 6 [facility] STICK/TAB INC INC LET REAGENT AUTO MICROSCOP Y BLOOD 62215 MANN D[facility]NELL COUNT 6 [facility] COMPLETE INC INC AUTO&[place] [address] MANN DARNELL MAXILLOFA 6 [facility] CIAL W/O INC INC CONTRAST MATERIAL SKIN TEST 00931 [facility] LOAN 5 VALLEY JEISON TUBERCULO INTERNAL SIS MED INTRADERM AL IMMUNOASS 28486 MANN D[facility]NELL AY 5 [facility] ANALYTE INC INC QUAL/SEMI QUAL MULTIPLE STEP COLLECTIO 80457 MANN DARNELL N VENOUS 5 [facility] BLOOD INC INC VENIPUNCT URE ALLERGEN 44000 MANN D[facility]LL SPECIFIC 5 [facility] IGE INC INC SHORTY/SEMI SHORTY EA ALLERGEN BLOOD 04161 [facility]LL COUNT 5 [facility] COMPLETE INC INC AUTO&AUTO DIFRNTL WBC COMPREHEN 86544 M[facility]LL SIVE 5 [facility] METABOLIC INC INC PANEL FLUORESCE 85177 MANN DARNELL NT 5 [facility] NONNFCT INC INC AGT ANTB SCREEN EA ANTIBODY RADEX 63393 [place] NAIDU ALL SPINE 5 MEDICAL THORACOLM IMAGING BR ASS STANDING SCOLIOSIS RADEX 10242 MANN DARNELL SPINE 5 [facility] SCOLIOS INC INC STUDY W/SUPINE & ERECT STUDY CHIROPRAC 82923 DAVIDLUISITO PULIDO TIC 5 GAR MANIPULAT CHIROPRAC [place] TIC CENTE SPINAL 3-4 REGIONS SELF-CARE 69444 DAVIDTHIKEV HERNANDEZTHIANA /HOME 5 MGMT CHIROPRAC CHIROPRAC TRAINING TIC CENTE TIC CENTE EACH 15 MINUTES RADEX 32158 [place] TESS SPINE 5 GAR LUMBOSACR CHIROPRAC AL 2/3 TIC CENTE VIEWS CHIROPRAC 91181 [place] PULIDO TIC 5 GAR MANIPULAT CHIROPRAC [place] TX TIC CENTE SPINAL 3-4 REGIONS RADEX 25704 [place] PULIDO SPINE 5 GAR CERVICAL CHIROPRAC 2 OR 3 [place] [address] [facility] PICKLESIM SURG 5 PATRICIO & ER [facility] PATHOLOGY DUBILIER GROSS&LA ROSCOPIC EXAM LIG/TRNSX 43066 [place] PITER J FLP 5 MEDICAL ERNST TUBE SERV ABDL/VAG FOUNDATIO POSTPARTU N M SPX ANES IPER 77607 [place] DEPA RAY LWR ABD 5 ANESTHESI W/LAPS A GROUP TUBAL PS LIGATION/ TRANSECT NEURAXIAL 45621 [place] JAVIER LABOR 5 ANESTHESI LA ANALG/ANE A GROUP S PLND PS VAGINAL DELIVERY VAGINAL 13241 JOY DUMAS DELIVERY 5 MEDICAL ERNST ONLY SERV W/POSTPAR FOUNDATIO GUZMAN CARE N BLOOD 11201 [facility] COUNT 5 DIAGNOSTI DIAGNOSTI COMPLETE CS CS AUTOMATED CUL 10294 [facility] PRSMPTV 5 DIAGNOSTI DIAGNOSTI PTHGNC CS CS ORGANISM SCRN W/COLONY ESTIMJ COLLECTIO 18142 [facility] N VENOUS 5 DIAGNOSTI DIAGNOSTI BLOOD CS CS VENIPUNCT URE SYPHILIS 10728 [facility] TEST 5 DIAGNOSTI DIAGNOSTI NON-TREPO CS CS NEMAL ANTIBODY QUAL ANTIBODY 13429 [facility] SCREEN 5 DIAGNOSTI DIAGNOSTI RBC EACH CS CS SERUM TECHNIQUE GLUCOSE 06739 [facility] POST 4 DIAGNOSTI DIAGNOSTI GLUCOSE CS CS DOSE INCORPORA T US PREG 40299 [place] O'SHELDON UTERUS 4 MEDICAL KRISTINA AFTER SERV TRIMEST FOUNDATIO N GESTATION PHYSICAL 95049 MANN DARNELL THERAPY 4 MEM HOSP [facility] HOSP EVALUATIO INC INC N IADNA 91522 [facility] NEISSERIA 4 DIAGNOSTI DIAGNOSTI CS CS LLC GONORRHOE AE AMPLIFIED PROBE TQ IADNA 68517 [facility] CHLAMYDIA 4 DIAGNOSTI DIAGNOSTI CS CS LLC TRACHOMAT IS AMPLIFIED PROBE TQ NEURAXIAL 43681 [place] MARKO ANT LABOR 1 ANESTHESI ANALG/ANE A GROUP S PLND PSC VAGINAL DELIVERY 34114 [facility] NONSTRESS 1 [facility]ALTH K[facility]NA TEST [facility] 48166 MANN DARNELL 1 [facility] CENTER VISUAL COLOR CMPRSN METHS Encounters Encounter Start End Date Code Location Performer Type Date OFFICE 44055 [facility] BESSON OUTPATIEN 7 7 VALLEY T VISIT INTERNAL 25 MED MINUTES OFFICE 87439 [facility] LOAN OUTPATIEN 6 6 [facility] T VISIT INTERNAL 15 MED MINUTES EMERGENCY 41664 [facility]ANN 6 6 [facility] H[facility]URGE NT [facility] MANN - 6 6 [facility] OUTPATIEN INC T OFFICE 28870 [facility] LOAN OUTPATIEN 5 5 [place] JEISON T VISIT INTERNAL 25 MED MINUTES HOSPITAL MANN - 5 5 [facility] OUTPATIEN INC T OFFICE 57489 [facility] LOAN OUTPATIEN 5 5 [facility] JEISON T VISIT INTERNAL 15 MED MINUTES HOSPITAL MANN - 5 5 [facility] OUTPATIEN INC T OFFICE 12808 [facility] PUL[facility]O OUTPATIEN 5 5 GAR T NEW CHIROPRAC MINUTES TIC CENTE OFFICE 15539 [facility] LOAN OUTPATIEN 5 5 VAL[facility] JEISON T VISIT INTERNAL 15 MED MINUTES EMERGENCY 56739 MANN JIANG 5 5 [facility] T VISIT P MODERATE SEVERITY HOSPITAL MANN - 5 5 [facility] OUTPATIEN INC T EMERGENCY 25208 MANN 5 5 [facility] INC T VISIT LOW/MODER SEVERITY OFFICE 06991 [facility] CONRAD OUTPATIEN 4 4 PHYSICIAN LA T NEW S GROUP MINUTES HOSPITAL MANN - 4 4 [facility] OUTPATIEN INC T OFFICE 46360 MANNY BRYANT OUTPATIEN 1 1 SADE ALLEY TENDER T VISIT 15 MINUTES OFFICE 62692 [facility]NELL OUTALEXANDER 1 1 [facility] CENTER 15 MINUTES
--- OUTSIDE RECORDS SUMMARY | 2017-08-19 11:31 | External Medical Summary Rpt ---
Author Author MONTRELL Brown, MONTRELL [employer] Organization [employer] Address Unknown Phone Unavailable [...] MAY HAVE ADVERSE PSYCHO- SOCIAL IMPACT, [facility] MMENDS RETESTI NG.\.br \This report contain s [...]
--- OUTSIDE RECORDS SUMMARY | 2017-08-19 11:31 | External Medical Summary Rpt | CCD ---
Demographics Preferred Language Ukrainian Marital Status Unknown Congregational Affiliation Unknown Race Unknown Ethnic Group Unknown Author Author , MONTRELL STOCK Address Unknown Phone Immunization Unable to retrieve immunization data due to connection failure with Immunization Registry. Please try again later.
--- OUTSIDE RECORDS SUMMARY | 2017-08-19 11:31 | External Medical Summary Rpt | CCD ---
Author Author , MONTRELL HOLMDOLORES Address Unknown Phone [email or web address] Care Team Providers Care Processing Rep Name Role Phone MINNA BUITRAGO Unavailable Unavailable NAIDU ALL, NAIUD ALL Unavailable Unavailable [facility] & Unavailable Unavailable DUBILIER, [facility] PATRICIO & DUBILIER MONDRAGON KARENA, MONDRAGON Unavailable Unavailable [facility] [place] Unavailable Unavailable [facility] DEPA RAY, DEPA RAY Unavailable Unavailable [facility] Unavailable Unavailable [place], [facility] [place] LOAN SAR, Unavailable Unavailable LOAN JEISON CONRAD LA, CONRAD Unavailable Unavailable LA JAVIER LA, JAVIER Unavailable Unavailable [facility] Unavailable Unavailable [place], [facility] Unavailable Unavailable CENTER, HOSP Unavailable Unavailable INC, [facility] Unavailable Unavailable HOSPITAL P, [facility] DUMAS ERNST, DUMAS Unavailable Unavailable ERNST GRAF BARRETT, GRAF BARRETT Unavailable Unavailable GRAF BARRETT, GRAF BARRETT Unavailable Unavailable [facility], Unavailable Unavailable [facility] Unavailable [facility]available GROUP PS, [facility] Un[facility], [facility] Unavailable Unavailable INTERNAL MED, [facility] INTERNAL MED MARKO ANT, MARKO ANT [...] [facility] Unavailable Unavailable [id number] # 0393, [facility] [address] # 0393 MANNY STUART, Unavailable Unavailable MANNY [...] MED H5213 MYOPIA 08-15-2016 [place] HYDE BILATERAL K48083 MIGRAINE 05-27-2016 [facility] INTRACT INTERNAL W/STAT MED MIGRAINOSUS B349 VIRAL 05-25-2016 [facility] UNSPECIFIED PLLC R51 HEADACHE 05-25-2016 [facility], [facility] Z720 TOBACCO USE 05-25-2016 [facility] K580 IRRITABLE 10-16-2015 [facility] BOWEL [place] SYNDROME INTERNAL WITH MED DIARRHEA M545 LOW BACK 10-16-2015 [facility] PAIN [facility] INTERNAL MED Z0000 ENCOUNTER 10-16-2015 [facility] GEN ADULT [facility] MED EXAM INTERNAL W/O MED ABNORMAL FIND Z23 ENCOUNTER 10-16-2015 [facility] FOR [facility] IMMUNIZATIO INTERNAL N MED 59998 DIARRHEA 07-11-2015 [facility] 98293 ABDOMINAL 07-11-2015 [facility] UNSPECIFIED INC SITE 7245 UNSPECIFIED 06-20-2015 [facility] BACKACHE [place] INTERNAL MED 59690 OTHER 06-12-2015 [place] LORD[facility]IS [facility] CENTE 7379 UNSPECIFIED 06-12-2015 [place] CURVATURE CHIROPRACTI OF SPINE C CENTE 7391 NONALLOPATH 06-12-2015 [place] IC LESION CHIROPRACTI OF CERVICAL C CENTE REGION NEC 7392 NONALLOPATH 06-12-2015 [place] IC LESION CHIROPRACTI OF THORACIC C CENTE REGION NEC V252 STERILIZATI 01-10-2015 [place] [facility]EST[facility]IA GROUP PS V7269 OTHER 01-10-2015 [facility] PATRICIO & EXAMINATION DUBILIER 650 NORMAL 01-08-2015 [place] [facility]IVERY [facility]ESTHESIA GROUP PS V221 SUPERVISION 01-08-2015 [place] [facility] NORMAL [facility]OUND[facility] V270 OUTCOME OF 01-08-2015 [place] [facility] LIVEBORN 3550 LESION OF 12-13-2014 [facility] SCIATIC [facility] NERVE INTERNAL MED 3559 MONONEURITI 12-13-2014 [facility] S OF [facility] UNSPECIFIED INTERNAL SITE MED V222 12-10-2014 [facility] P V239 UNSPECIFIED 11-27-2014 [facility] V2881 ENCOUNTER 08-23-2014 [place] [facility] SURVEY 6849 CELLULITIS& 05-26-2014 [facility] ABSCESS OF PHYSICIANS HAND EXCEPT GROUP FINGERS&RIGO MB 7243 SCIATICA 05-22-2014 [facility] INC V571 OTHER 05-22-2014 [facility] THERAPY INC V2511 ENC FOR 10-30-2011 [facility] INSERTION DIRECTOR PROCESS ENGINEERING INTRAUTERIN E CONTRACEPT DEVICE V7241 10-30-2011 [facility] EXAMINATION DIRECTOR PROCESS ENGINEERING OR TEST NEGATIVE RESULT 6258 OT SPEC 09-24-2011 [facility] SYMPTOM DIRECTOR PROCESS ENGINEERING ASSOC W/FEMALE GENITAL ORGANS V2509 OT GENERAL 09-24-2011 [facility] DIRECTOR PROCESS ENGINEERING CNSL&ADVICE CONTRACEPT MANAGEMENT 27812 THREATENED 05-23-2011 [facility] OF ANTEPARTUM DAVID V7242 12-17-2010 [facility] EXAMINATION HEALTH OR TEST CENTER POSITIVE RESULT [...] 47 DE ZA 82 17 17 59 SD 8 83 PH IN AR E MA [...] IC 12 8- 8- 00 SI 62 SD ve IL 61 20 20 DE E [...] -0 -[address] 37 NT ti SD 80 3- 3- 00 SI 01 ER [...] Procedures Procedure DOS Code Location Performer Comment [facility] [address] [facility] 6 XM&EVAL COMPRE NEW PT 1/> [place] [address] M[facility]LL INFUSION 6 [facility] THERAPY/P INC INC ROPHYLAXI S /DX 1ST TO 1 HR THERAPEUT 25074 [facility] D[facility] IC 6 [facility] INJECTION INC INC IV PUSH EACH NEW DRUG URINE 40757 MANN DARNELL 6 [facility] TEST INC INC VISUAL COLOR CMPRSN METHS COMPREHEN 26950 [facility] SIVE 6 [facility] [place] [address] MANN DARNELL HEAD/BRAI 6 [facility] N W/O INC INC CONTRAST MATERIAL URNLS DIP 32443 MANN DARNELL 6 [facility] STICK/TAB INC INC LET REAGENT AUTO MICROSCOP Y BLOOD 60763 [facility] COUNT 6 [facility] COMPLETE INC INC AUTO&[place] [address] MANN DARNELL MAXILLOFA 6 [facility] CIAL W/O INC INC CONTRAST MATERIAL SKIN TEST 82419 [facility] LOAN 5 VALLEY JEISON TUBERCULO INTERNAL SIS MED INTRADERM AL IMMUNOASS 98732 [facility] AY 5 [facility] ANALYTE INC INC QUAL/SEMI QUAL MULTIPLE STEP COLLECTIO 37403 MANN DARNELL N VENOUS 5 [facility] BLOOD INC INC VENIPUNCT URE ALLERGEN 55787 [facility] SPECIFIC 5 [facility] IGE INC INC SHORTY/SEMI SHORTY EA ALLERGEN BLOOD 19583 [facility] COUNT 5 [facility] COMPLETE INC INC AUTO&AUTO DIFRNTL WBC COMPREHEN 10411 [facility] D[facility] SIVE 5 [facility] METABOLIC INC INC PANEL FLUORESCE 94670 M[facility] DAR[facility]LL NT 5 [facility] NONNFCT INC INC AGT ANTB SCREEN EA ANTIBODY RADEX 83726 [place] NAIDU ALL SPINE 5 MEDICAL THORACOLM IMAGING BR ASS STANDING SCOLIOSIS RADEX 68070 [facility]LL SPINE 5 [facility] SCOLIOS INC INC STUDY W/SUPINE & ERECT STUDY CHIROPRAC 85527 DAVIDLUISITO PULIDO TIC 5 GAR MANIPULAT CHIROPRAC [place] TIC CENTE SPINAL 3-4 REGIONS SELF-CARE 43531 DAVIDTHIKEV HERNANDEZTHIANA /HOME 5 MGMT CHIROPRAC CHIROPRAC TRAINING TIC CENTE TIC CENTE EACH 15 MINUTES RADEX 02064 [place] TESS SPINE 5 GAR LUMBOSACR CHIROPRAC AL 2/3 TIC CENTE VIEWS CHIROPRAC 67722 CYN[place]IEKEV PULIDO TIC 5 GAR MANIPULAT CHIROPRAC [place] TX TIC CENTE SPINAL 3-4 REGIONS RADEX 39757 [place] PUL[place]O SPINE 5 GAR CERVICAL CHIROPRAC 2 OR 3 [place] 14125 [facility] PICKLESIM SURG 5 PATRICIO & ER [facility] PATHOLOGY DUBILIER GROSS&LA ROSCOPIC EXAM LIG/TRNSX 01815 [place] PITER J FLP 5 MEDICAL ERNST TUBE SERV ABDL/VAG FOUNDATIO POSTPARTU N M SPX ANES IPER 70582 [place] DEPA RAY LWR ABD 5 ANESTHESI W/LAPS A GROUP TUBAL PS LIGATION/ TRANSECT NEURAXIAL 22981 [place] JAIVER LABOR 5 ANESTHESI LA ANALG/ANE A GROUP S PLND PS VAGINAL DELIVERY VAGINAL 39395 JOY DUMAS DELIVERY 5 MEDICAL ERNST ONLY SERV W/POSTPAR FOUNDATIO GUZMAN CARE N BLOOD 90638 [facility] COUNT 5 DIAGNOSTI DIAGNOSTI COMPLETE CS CS AUTOMATED CUL 09866 [facility] PRSMPTV 5 DIAGNOSTI DIAGNOSTI PTHGNC CS CS ORGANISM SCRN W/COLONY ESTIMJ COLLECTIO 58188 [facility] N VENOUS 5 DIAGNOSTI DIAGNOSTI BLOOD CS CS VENIPUNCT URE SYPHILIS 75327 [facility] TEST 5 DIAGNOSTI DIAGNOSTI NON-TREPO CS CS NEMAL ANTIBODY QUAL ANTIBODY 68988 [facility] SCREEN 5 DIAGNOSTI DIAGNOSTI RBC EACH CS CS SERUM TECHNIQUE GLUCOSE 96065 [facility] POST 4 DIAGNOSTI DIAGNOSTI GLUCOSE CS CS DOSE INCORPORA T US PREG 71773 [place] [facility] UTERUS 4 MEDICAL KRISTINA AFTER SERV TRIMEST FOUNDATIO N GESTATION PHYSICAL 03378 MANN DARNELL THERAPY 4 [facility] EVALUATIO INC INC N IADNA 43627 [facility] NEISSERIA 4 DIAGNOSTI DIAGNOSTI CS CS LLC GONORRHOE AE AMPLIFIED PROBE TQ IADNA 51554 [facility] CHLAMYDIA 4 DIAGNOSTI DIAGNOSTI CS CS LLC TRACHOMAT IS AMPLIFIED PROBE TQ NEURAXIAL 11710 [place] MARK[facility] ANT LABOR 1 ANESTHESI ANALG/ANE A GROUP S PLND PSC VAGINAL DELIVERY 54238 [facility] NONSTRESS 1 [facility] 99813 MANN DARNELL 1 [facility] CENTER VISUAL COLOR CMPRSN METHS Encounters Encounter Start End Date Code Location Performer Type Date OFFICE 61374 [facility] BESSON OUTPATIEN 7 7 [facility] T VISIT INTERNAL 25 MED MINUTES OFFICE 81809 [facility] LOAN OUTPATIEN 6 6 [facility] T VISIT INTERNAL 15 MED MINUTES EMERGENCY 46094 MANN 6 6 [facility] HIGH/URGE NT [facility] MANN - 6 6 [facility] OUTPATIEN INC T OFFICE 16858 [facility] LOAN OUTPATIEN 5 5 [facility] JEISON T VISIT INTERNAL 25 MED MINUTES HOSPITAL MANN - 5 5 [facility] OUTPATIEN INC T OFFICE 60134 [facility] LOAN OUTPATIEN 5 5 [facility] JEISON T VISIT INTERNAL 15 MED MINUTES HOSPITAL MANN - 5 5 [facility] OUTPATIEN INC T OFFICE 50447 [facility] OUTPATIEN 5 5 GAR T NEW CHIROPRAC MINUTES TIC CENTE OFFICE 25531 [facility] LOAN OUTPATIEN 5 5 [facility] JEISON T VISIT INTERNAL 15 MED MINUTES EMERGENCY 17036 MANN JIANG 5 5 [facility] T VISIT P MODERATE SEVERITY HOSPITAL MANN - 5 5 [facility] OUTPATIEN INC T EMERGENCY 60612 MANN 5 5 [facility] INC T VISIT LOW/MODER SEVERITY OFFICE [id number] [facility] CONRAD OUTPATIEN 4 4 [facility]IC[facility]OSP[facility] MANN - 4 4 [facility] INC T OFFICE [id number] MANNY BRYANT OUTPATIEN 1 1 SADE DIRECTOR PROCESS ENGINEERING T VISIT 15 MINUTES OFFICE [id number] MANN DARNELL OUTALEXANDER [address] [facility]ENTER 15 MINUTES
--- NOTE | 2017-08-19 11:55 | Urgent Treatment Center Report ---
History of Present Issue Date/Time Seen by Provider 08/19/17 1155 Visit Reason Pt arrived:Walked Presenting Problem:PT C/O OF NAUSEA/VOMITING, DIZZINESS, LEFT EAR AND THROAT STARTED HURTING LAST NIGHT 08/18/17 Location if Accident: Onset of symptoms date/time:08/19/17 or onset unknown for: Have you (or family members/close friends) recently traveled outside the [place]? N If Yes, where/when: Have you had exposure to infectious disease within the past month? TB? Other? Specify: Patient state that she has not been feeling well State that she has been having sinus drainage down the back of her throat State that she noticed that she has been feeling dizzy and when she moves quickly she feels like the room is spinning. State that she feels like her ears are full and thinks she may have fluid in there. State that she starts off coughing and will cough until she vomits ALLERGIES Coded Allergies: No Known Allergies (05/25/16) Home Medications Reported Medications No Known Home Medications History Medical History General CAD? No Angina: No CA: No Hypertension? No Hyperlipidemia? No CHF? No DVT? No PE? No COPD? No Asthma? No Anemia? No GERD? No Gastric ulcers? No GI Bleed? No Hernia? No Thyroid Problems? No Hypothyroidism? No CVA? No Seizures? No Diabetes? No Renal Insuffiency? No UTI? No Stones? No BPH? No GB Disease: No Nephritic Syndrome? No Asplenia? No Hepatitis? No Sickle Cell Disease? No Arthritis? No Migraines? No Cataracts? No Glaucoma? No MRSA? No HIV? No TB? No Anxiety? No Depression? No Cancer? No More? Yes Additional hx: SCOLIOSIS Immunization HX DT/Tetanus < 1 Year Ago Surgical Hx Previous Surgery?Y TONSIL WISDOM TEETH INFECTION REMOVED BACK PROFILE [employer] Hx LMP Now Social History Smoking Hx Smoker: Current Every Day Smoker Tobacco: Yes Type Cigarettes Packs/day < 1 Pack Alcohol Alcohol: No Review of Systems All Other Systems Reviewed and Negative ENT ear pain, nose congestion, throat pain. Respiratory cough Gastrointestinal denies abdominal pain, denies constipation, denies diarrhea, vomiting Physical Exam Vital Signs Vital Signs Date Time Temp Pulse Resp B/P Pulse O2 O2 Flow FiO2 Ox Delivery Rate 08/19 1138 98.1 63 18 130/80 93 General Appearance normal appearance, WD/WN, no apparent distress Ear, Nose, Throat FLuid noted left ear, throat red clear drainage from sinuses Respiratory Status Yes: trachea midline, chest symmetrical, non tender chest. No: respiratory distress. Cardiovascular normal exam, regular rate/rhythm Neurologic alert, normal exam, oriented x 3 Medical Decision Making LABS/Meds/Orders Pt receiving controlled substance in ED? No Results/Orders Laboratory Tests 08/19/17 1158: Group A Strep Screen NOT DETECTED Current Medication Orders Sig/Petros Start time Last Medication Dose Route Stop Time Status Admin Meclizine HCl 25 MG ONCE ONE 08/19 1200 DC 08/19 PO 08/19 1201 1202 Orders Procedure Date/time Status [facility] STREP SCREEN 08/19 1158 Complete Departure Departure Time of Disposition 1240 Disposition DC Home or Self Care(routine) Clinical Impression Primary Impression: Vertigo Condition STABLE Referrals Andrea COPELAND,Mckinley (Family): 3 Days-Call Office Patient Instructions DI for Vertigo, Vertigo Additional Instructions Take medication as prescribed Follow up with family doctor REturn if needed Be careful taking medication and do not drive as medication may make you sleepy Discharge Counseling Counseled pt/family regarding diagnosis, medications/RX, home care, follow up needs Prescriptions Current Visit Scripts MECLIZINE HCL (Meclizine 25MG) 25 MG PO BID #60 TABLET Fluticasone Propionate (Flonase 50 Mcg Nasal [place]) 2 SPRAY NA DAILY #1 BOT at 1241
[2017-08-19] MEDS ORDERED: FLONASE 50 MCG16 GM (12:41)
[2017-08-19] MEDS ORDERED: MECLIZINE 25MG25 MG PO (12:41)
[2017-08-19 12:44] VITALS: BP 130/80
== END 2017-08-19 12:45 | disposition home or self-care (01) ==
LOC: UTC 11:21
DX: R42 Dizziness and giddiness (principal); F17.210 Nicotine dependence, cigarettes, uncomplicated

== ENCOUNTER 2017-10-06 09:05 | Emergency (ER) | payer MEDICAID ==
[~2017-10-06] VITALS: Ht 162.6 cm; Wt 81.6 kg
[~2017-10-06 09:05] MED LIST changes: +FLONASE 50 MCG16 GM; +MECLIZINE 25MG25 MG PO
--- OUTSIDE RECORDS SUMMARY | 2017-10-06 09:11 | External Medical Summary Rpt | CCD ---
Author Author , [facility] Organization [employer] Address Unknown Phone [email or web address] Immunization Name Date Rout CVX Reac Dose Comm Prov Is Faci e tion ent ider Refu lity Give sed n Tdap 02-1 115 999 Hist H149 No H149 , 9-20 oric Adso 13 al rbed Info rmat ion - Sour ce Unsp ecif ied Hep 12-1 8 999 Hist H149 No H149 B, 7-20 oric ped/ 01 al adol Info rmat ion - Sour ce Unsp ecif ied MMR 07-1 3 999 Hist H149 No H149 2-20 oric 01 al Info rmat ion - Sour ce Unsp ecif ied Hep 07-1 8 999 Hist H149 No H149 B, 2-20 oric ped/ 01 al adol Info rmat ion - Sour ce Unsp ecif ied Hep 06-0 8 999 Hist H149 No H149 B, 5-20 oric ped/ 01 al adol Info rmat ion - Sour ce Unsp ecif ied Td 06-0 9 999 Hist H149 No H149 (yakelin 5-20 oric lt), 01 al Info adso rmat rbed ion - Sour ce Unsp ecif ied
--- OUTSIDE RECORDS SUMMARY | 2017-10-06 09:11 | External Medical Summary Rpt | CCD ---
Author Author [employer] Organization [employer] Address Unknown Phone Unavailable Purpose Continuity of Care Document - through 2016
--- OUTSIDE RECORDS SUMMARY | 2017-10-06 09:11 | External Medical Summary Rpt | CCD ---
Author Author , [facility] Organization [facility] Address Unknown Phone [email or web address] Immunization Name Date Rout CVX Reac Dose [...]
--- OUTSIDE RECORDS SUMMARY | 2017-10-06 09:11 | External Medical Summary Rpt | CCD ---
Author Author , CAMDEN STOCK Address Unknown Phone [email or web address] Purpose Continuity of Care Document - 08-19-2017 through 2016 Results Labs Lab Lab Date Result Refere Interp Status Commen Order Detail nces retati t Range on Screening group A Streptococcus antigen (08-19-2017 11:58) Screeni NOT NOTDETE complet ng 0[address] ed group A 11:58 D NOT DETECTE Strepto D L coccus antigen Comment: LOT # @[id number] EXP DATE @2019-07-05
--- OUTSIDE RECORDS SUMMARY | 2017-10-06 09:11 | External Medical Summary Rpt | CCD ---
Author Author , CAMDEN STOCK Address Unknown Phone [email or web address] Purpose Continuity of Care Document - 08-19-2017 through 2016 Results Labs Lab Lab Date Result Refere Interp Status Commen Order Detail nces retati t Range on Screening group A Streptococcus antigen (08-19-2017 11:58) Screeni NOT NOTDETE complet ng 0[address]ED ed group A 11:58 D NOT DETECTE Strepto D L coccus antigen Comment: LOT # @[id number] EXP DATE @2019-07-05
--- OUTSIDE RECORDS SUMMARY | 2017-10-06 09:12 | External Medical Summary Rpt ---
Author Author MIHAIDOLORES Brown, [employer] Organization [employer] Address Unknown Phone Unavailable Results Streptococcus pyogenes Ag [Presence] in Unspecified specimen Observa Value Referen Units Interpr Notes Date tion ce etation Range Strepto NOT NOTDETE No No LOT # Aug 19 coccus DETECTE CTED informa informa @[id number] pyogene D tion in tion in 2 EXP 11:58 s Ag source source DATE AM [Presen data data @ ce] in 07-05 Unspeci fied specime n CHLAMYDIA AND GONORRHEA TESTING Observa Value Referen [...] Dec 21 T informa informa informa informa 2012 tion in tion in tion in tion [...] MAY HAVE ADVERSE PSYCHO- SOCIAL IMPACT, THE CDCRECO MMENDS RETESTI NG.\.br \This report contain s patient informa tion that must be protect ed in accorda nce with the Health Insuran ce Portabi lity and Account ability Act. CHLAMYDIA AND GONORRHEA TESTING Observa Value Referen Units Interpr Notes Date tion ce etation Range COLLECT NA No No No No Dec 21 OR informa informa informa informa 2012 tion in tion in tion in tion in 1:30 PM source source source source data data data data ETHNICI WHITE, No No No No Dec 21 TY NON-HIS informa informa informa informa 2012 PANIC tion in tion in tion in [...] nce method with the Health Insuran ce Portabi lity and Account ability Act.
--- OUTSIDE RECORDS SUMMARY | 2017-10-06 09:12 | External Medical Summary Rpt ---
Author Author MIHAIDOLORES Brown, [employer] Organization [employer] Address Unknown Phone Unavailable Results Streptococcus pyogenes Ag [Presence] in Unspecified specimen Observa Value Referen Units Interpr Notes Date tion ce etation Range Strepto NOT NOTDETE No No LOT # Aug 19 coccus DETECTE CTED informa informa @[id number] pyogene D tion in tion in 2 [...]
[2017-10-06] MEDS ORDERED: MELOXICAM7.5 MG PO (09:17)
[2017-10-06] MEDS ORDERED: MECLIZINE HYDRO25 M2 PO (09:18)
[2017-10-06 09:32] LABS: UTC STREP SCREEN NOT DETECTED (NOTDETECTED)
[2017-10-06] MEDS ORDERED: ZITHROMAX Z PA250 MG PO (10:02)
[2017-10-06] MEDS ORDERED: PROVENTIL0.09 MG/A1 IH (10:02)
[2017-10-06] MEDS ORDERED: PREDNISONE 20MG20 MG PO (10:02)
--- NOTE | 2017-10-06 10:02 | Urgent Treatment Center Report ---
History of Present Issue Date/Time Seen by Provider 10/06/17 0974 Visit Reason Pt arrived:Walked Presenting Problem:PT STATES SHE HAS FLU LIKE SYMPTOMS, SINCE THURSDAY. Location if Accident: Onset of symptoms date/time:/ or onset unknown for:MEDICAL HX UNKNOWN Have you (or family members/close friends) recently traveled outside the [place]? N If Yes, where/when: Have you had exposure to infectious disease within the past month? TB? Other? Specify: Here for cough but also needs a work physical and TB skin test. Cough x one week. Started w/ "cold symptoms". Getting worse. Mild SOA at times w / occasional wheezing. No fever, aches, chills. + tobacco use. Theraflu last night seemed to help. Spouse w/ same symptoms last week. Source patient Exam Limitations no limitations ALLERGIES Coded Allergies: No Known Allergies (05/25/16) Home Medications Reported Medications Meloxicam (Meloxicam 7.5MG) 7.5 MG PO BID #30 MECLIZINE HCL (ANTIVERT 25MG (generic)) 25 MG PO PRN PRN DIZZY #60 History Medical History General CAD? No Angina: No [place]: No Hypertension? No Hyperlipidemia? No CHF? No DVT? No PE? No COPD? No Asthma? No Anemia? No GERD? No Gastric ulcers? No GI Bleed? No Hernia? No Thyroid Problems? No Hypothyroidism? No CVA? No Seizures? No Diabetes? No Renal Insuffiency? No UTI? No Stones? No BPH? No GB Disease: No Nephritic Syndrome? No Asplenia? No Hepatitis? No Sickle Cell Disease? No Arthritis? No Migraines? No Cataracts? No Glaucoma? No MRSA? No HIV? No TB? No Anxiety? No Depression? No Cancer? No More? Yes Additional hx: SCOLIOSIS Immunization HX DT/Tetanus < 1 Year Ago Surgical Hx Previous Surgery?Y TONSIL WISDOM TEETH INFECTION REMOVED BACK Social History Smoking Hx Smoker: Current Every Day Smoker Tobacco: Yes Type Cigarettes Packs/day < 1 Pack Alcohol Alcohol: No Review of Systems All Other Systems Reviewed and Negative Constitutional see HPI Eyes denies drainage ENT see HPI. denies: ear pain, throat pain. Respiratory see HPI Cardiovascular denies chest pain Gastrointestinal denies no symptoms reported Musculoskeletal denies joint pain Skin denies rash Psychiatric/Neurological denies headache Physical Exam Vital Signs Vital Signs Date Time Temp Pulse Resp B/P Pulse O2 O2 Flow FiO2 Ox Delivery Rate 10/06 915 99.2 95 18 124/72 97 General Appearance normal appearance, no apparent distress, happy, talkative Eye Exam - bilateral eye normal exam Comment snellen R 20/25 L 20/25 B 20/20 Ear, Nose, Throat normal ENT inspection Neck non-tender, supple Respiratory Status Yes: trachea midline, chest symmetrical, non tender chest, non productive cough. No: respiratory distress, use of accessory muscles, productive cough. Lung Sounds bilateral: wheezing (faint end expiratory all lobes). Cardiovascular regular rate/rhythm, no peripheral edema, no murmur Gastrointestinal normal bowel sounds, non tender, soft Extremities normal range of motion (x4 extremities) Strength 5 Upper Ext (L), 5 Upper Ext (R), 5 Lower Ext (L), 5 Lower Ext (R) Neurologic alert, oriented x 3 Mental status normal mood/affect Skin normal color, warm/dry Lymphatic no adenopathy Medical Decision Making LABS/Meds/Orders Pt receiving controlled substance in ED? No Results/Orders Laboratory Tests 10/06/17 0919: Influenza Type A Ag NOT DETECTED, Influenza Type B Ag NOT DETECTED, Group A Strep Screen NOT DETECTED Current Medication Orders Sig/Petros Start time Last Medication Dose Route Stop Time Status Admin Tuberculin 5 UNITS ONCE ONE 10/06 1000 DC 10/06 SC 10/06 1001 0953 Tuberculin 0 .STK-MED ONE 10/06 0950 DC .ROUTE Orders Procedure Date/time Status UTC STREP SCREEN 10/06 919 Complete UTC FLU A,B 10/06 919 Complete Departure Departure Time of Disposition 0957 Disposition DC Home or Self Care(routine) Clinical Impression Primary Impression: Acute bronchitis Qualifiers: Bronchitis organism: unspecified organism Qualified Code: J20.9 - Acute bronchitis, unspecified Secondary Impressions: Physical exam, Tobacco abuse, Visit for TB skin test Condition STABLE Referrals Andrea COPELAND,Mckinley (Family) IMMEDIATELY for new or worsening symptoms OR no noticeable improvement over the next 48-72 hours. 911 for difficulty breathing. Patient Instructions DI for Acute Bronchitis Additional Instructions * STOP SMOKING!!!! * start antibiotic today. Be sure to complete entire prescription even if feeling better. * Monitor Temp. FU if new onset fevers * humidifier/vaporizer/hot steamy shower * Inhaler every 4-6 hours as needed like we discussed. If unsure how to use it, ask pharmacist to demonstrate how. Should help open airways and improve cough, wheezing, shortness of breath. * Mucinex during the day for your cough and cough suppressant only at night. Be sure to drink lots of water. Insurance may not cover a prescription of mucinex. Might be cheaper to get 400mg tablets and take 2 tablets morning, midday and evening all with lots of water. * Theraflu at night is ok to continue since it works * Start steroid today. Helps with inflammation therefore, cough and wheezing. Follow directions on package. Rvwd side effects. Pt reports they have taken them before. TB skin test placed. RETURN 10/08 after 0953am or 10/09 before 0953am Cleared for work Discharge Counseling Counseled pt/family regarding diagnosis, test results, medications/RX, home care, follow up needs Prescriptions Current Visit Scripts ALBUTEROL (Proventil Hfa Inhaler) 1-2 PUFF IH Q4-6H PRN PRN SOA, wheezing #1 CAN Azithromycin (Zithromycin (Z-MELIZA) 250MG Tab) 250 MG PO DAILY #6 TAB TAKE TWO (2) TABLETS ON DAY 1, THEN ONE (1) TABLET DAY #2 THRU #5 Prednisone (Prednisone 20MG) 20 MG PO BID #10 TAB at 1024
[2017-10-06 10:19] VITALS: BP 120/80
== END 2017-10-06 10:27 | disposition home or self-care (01) ==
LOC: UTC 09:05
PROVIDERS: Nurse Practitioner Family
DX: J20.9 Acute bronchitis, unspecified (principal); F17.210 Nicotine dependence, cigarettes, uncomplicated; Z23 Encounter for immunization